=== PATIENT | male | born 1975 | race Hispanic/Latino ===

== ENCOUNTER 2017-01-02 10:04 | Emergency (ER) | payer BC ==
[2017-01-02 10:59] VITALS: RESP 18; TEMP 97.9; O2SAT 99; BMI 32.3
[2017-01-02] MEDS ORDERED: TDAP Vaccine 0.5 mL Syr IM ONE (11:09)
--- NOTE | 2017-01-02 12:11 | RAD ---
PROCEDURE: Right Knee Radiographs. HISTORY: knee pain COMPARISON: None. FINDINGS: BONES: Normal. No fracture. JOINTS: Normal. No osteoarthritis. JOINT EFFUSION: None. OTHER FINDINGS: None. IMPRESSION: Normal radiographs of the right knee.
--- NOTE | 2017-01-02 12:15 | ED PDOC ---
Arrival/HPI - General Chief Complaint: Lower Extremity Problem/Injury Time Seen by Provider: 01/02/17 11:06 Historian: Patient - History of Present Illness Narrative History of Present Illness (Text): 01/02/17 16:24 41-year-old male presents today with right knee pain status post injury last night. Patient states he fell through a grate and sustained abrasion to the anterior lower leg and an injury to the knee. Patient states he only has pain with ambulation. Patient states his knee feels like it's going to give out. No medications were taken for pain at home. Patient denies numbness weakness or tingling in the extremities. Patient unsure of his last tetanus shot. No other complaints Past Medical History - Provider Review Nursing Documentation Reviewed: Yes - Travel History Have you recently traveled outside [place] w/in the past 3 mons?: No - Tetanus Immunization Tetanus Immunization: Unknown - Past Medical History Past Medical History: No Previous - Cardiac Hx Cardiac Disorders: No - Gastrointestinal Hx Gastrointestinal Disorders: Yes Hx Diverticulitis: Yes - Psychiatric Hx Depression: No Hx Emotional Abuse: No Hx Physical Abuse: No Hx Substance Use: No - Past Surgical History Past Surgical History: No Previous - Suicidal Assessment Feels Threatened In Home Enviroment: No Family/Social History - Physician Review Nursing Documentation Reviewed: Yes Family/Social History: Unknown Family HX Smoking Status: Never Smoked Hx Alcohol Use: Yes Hx Substance Use: No Hx Substance Use Treatment: No Allergies/Home Meds Allergies/Adverse Reactions: Allergies No Known Allergies Allergy (Verified 07/03/13 07:33) Home Medications: Home Meds Medication Instructions Recorded Confirmed Clonazepam [Klonopin] 0.5 mg PO HS 01/02/17 01/02/17 Review of Systems - Review of Systems Constitutional: absent: Fatigue, Fevers Respiratory: absent: SOB, Cough Cardiovascular: absent: Chest Pain, Palpitations Gastrointestinal: absent: Abdominal Pain, Diarrhea, Nausea, Vomiting Genitourinary Male: absent: Dysuria, Frequency, Hematuria Musculoskeletal: Arthralgias Skin: absent: Rash, Pruritis Neurological: absent: Headache, Dizziness Physical Exam Vital Signs Reviewed: Yes Vital Signs Temp Pulse Resp BP Pulse Ox 01/02/17 12:24 82 18 130/85 99 01/02/17 10:54 97.9 F 78 18 135/96 H 99 Temperature: Afebrile Blood Pressure: Hypertensive Pulse: Regular Respiratory Rate: Normal Appearance: Positive for: Well-Appearing, Non-Toxic, Comfortable Pain Distress: None Mental Status: Positive for: Alert and Oriented X 3 - Systems Exam Head: Present: Atraumatic Mouth: Present: Moist Mucous Membranes Neck: Present: Normal Range of Motion Respiratory/Chest: Present: Clear to Auscultation, Good Air Exchange. No: Respiratory Distress, Accessory Muscle Use Cardiovascular: Present: Regular Rate and Rhythm, Normal S1, S2. No: Murmurs Lower Extremity: Present: NORMAL PULSES, Normal ROM, Tenderness (right knee; + ttp over anterior aspect of knee; full rom of knee; no edema, no erythema, no ecchymosis; small abrasion noted to anterior right lower leg; no surrounding erythema. ), Swelling, Neurovascularly Intact, Capillary Refill < 2 s. No: CALF TENDERNESS, Erythema, Deformity, Temperature Abnormalties Skin: Present: Warm, Dry Psychiatric: Present: Alert, Oriented x 3 Medical Decision Making ED Course and Treatment: 01/02/17 16:26 Patient nontoxic well-appearing in no distress with stable vital signs X-rays of the knee: no fracture toradol tetanus updated Patient placed in knee immobilizer. Crutches given for ambulation I discussed all results with patient advised to followup with the orthopedist for the next 2 days. Return if symptoms worsen persist or new symptoms develop i advised the patient that although the xrays show no fracture; there is still a possibility for ligamentous or tendon injury the patient must see the orthopedist for further evaluation. Patient verbalizes understanding of discharge instructions and need for immediate followup. Impression: knee pain, abrasion, knee Motrin every 6 hours as needed for pain Rest, ice, compression, elevation Use crutches for ambulation Followup with the orthopedist within the next 2 days Followup with primary care physician within the next 2 days Return if symptoms worsen persist or if new symptoms develop - RAD Interpretation Radiology Orders: 01/02/17 11:06 KNEE W PATELLA RIGHT 3 VIEW [RAD] Stat - Medication Orders Current Medication Orders: Discontinued Medications Ketorolac Tromethamine (Toradol) 60 mg IM STAT STA Stop: 01/02/17 11:10 Last Admin: 01/02/17 11:24 Dose: 60 MG IM Administration Charges Document 01/02/17 11:24 [facility] (Rec: 01/02/17 11:24 [id number] Injection Site MAR Injection Site Left Deltoid Charges for Administration # of IM Administrations 1 Tetanus/Reduced Diphtheria/Acell Pertussis (Boostrix Vaccine Inj) 0.5 ml IM .ONCE ONE Stop: 01/02/17 11:10 Last Admin: 01/02/17 11:24 Dose: 0.5 ML MAR Immunization Data Document 01/02/17 11:24 [facility] (Rec: 01/02/17 11:28 [id number] Immunization Data Opt out of sending immunization data to Yes respository? Suppress immunization data to other No providers from registry? Vaccine Eligibility Yes Vaccine Eligibility Date 01/02/17 Vaccine Information Sheet Given No Informed Consent Given Yes Vaccine Vitamin Manager glaxo Vaccine Lot Number [id number] Vaccine Expiration Date 01/05/19 Site Given Right Deltoid Route Intramuscular Immunization Units ml Disposition/Present on Arrival - Present on Arrival Any Indicators Present on Arrival: No History of DVT/PE: No History of Uncontrolled Diabetes: No Urinary Catheter: No History of Decub. Ulcer: No History Surgical Site Infection Following: None - Disposition Have Diagnosis and Disposition been Completed?: Yes Diagnosis: Knee pain, Abrasion, knee Disposition: HOME/ ROUTINE Disposition Time: 12:12 Patient Plan: Discharge Condition: GOOD Discharge Instructions (ExitCare): Knee Pain (ED), Abrasion (ED) Additional Instructions: Motrin every 6 hours as needed for pain Rest, ice, compression, elevation Use crutches for ambulation Followup with the orthopedist within the next 2 days Followup with primary care physician within the next 2 days Return if symptoms worsen persist or if new symptoms develop Prescriptions: Ibuprofen [Motrin] 600 mg PO Q6H PRN #20 tab PRN Reason: pain/fever reduction traMADol [Ultram] 50 mg PO Q6H PRN #15 tab PRN Reason: moderate to severe pain Referrals: Dion Maxwell MD [Primary Care Provider] - Follow up with primary Cy Howard MD [Staff Provider] - Follow up with primary [facility] [Outside] - Follow up with primary Forms: WORK NOTE
[2017-01-02 12:26] VITALS: BP 130/85; PULSE 82
== END 2017-01-02 12:25 | disposition home or self-care (01) ==
LOC: ED 10:04
DX: M25.561 Pain in right knee (principal); S80.211A Abrasion, right knee, initial encounter; W19.XXXA Unspecified fall, initial encounter; Z23 Encounter for immunization
CPT/HCPCS: 29530; 73562; 90471; 90715; 96372; 99285; J1885